=== PATIENT | male | born 1995 | race Caucasian/White ===

== ENCOUNTER 2022-10-30 10:43 | Emergency (ER) | payer MEDICAID, SELFPAY ==
[2022-10-30 11:13] VITALS: BP 169/97; PULSE 95; RESP 20; TEMP 36.6; O2SAT 97
[2022-10-30 11:33] LABS: Basophils Percent Auto 0.4 % (0.2-1.2); Eosinophils Absolute Auto 0.1 K/mm3 (0-0.3); Eosinophils Percent Auto 1.5 % (0-4.4); Hematocrit 50.2 % (42.0-52.0); Hemoglobin 17.4 g/dL (14.0-18.0); Immature Granulocyte Absolute 0.02 K/mm3 (0.00-0.031); Immature Granulocyte Percent A 0.3 % (0-0.5); Lymphocytes Absolute Auto 2.14 K/mm3 (0.9-3.2); Lymphocytes Percent Auto 27.1 % (18.3-44.2); Mean Corpuscular HGB Conc 34.7 g/dl (32-36); Mean Corpuscular Hemoglobin 33.2 pg (26-34); Mean Corpuscular Volume 95.8 fl (80-100); Mean Platelet Volume 10.9 fl (7.4-10.4); Monocytes Absolute Auto 0.5 K/mm3 (0.1-0.6); Monocytes Percent Auto 6.7 % (2.6-8.5); Neutrophils Absolute Auto 5.1 K/mm3 (1.3-6.7); Platelet Count Result 228 k/mm3 (150-375); Red Blood Count 5.24 M/mm3 (4.6-6.20); Red Cell Distribution Width 11.7 % (11.5-14.5); White Blood Count 7.9 K/mm3 (4.5-10.0)
[2022-10-30 11:40] LABS: Appearance Urine Clear (Clear); Bacteria Urine None Seen /hpf; Bilirubin Urine Negative (Negative); Blood Urine 2+ (Negative); Color Urine Dark Yellow (Yellow); Glucose Urine UA Negative (Negative); Ketones Urine Trace mg/dL (Negative); Leukocyte Esterase Ur Negative LEU/UL (Negative); Nitrate Urine Negative (Negative); Non Pathogenic Casts 0-2; Protein Urine 1+ mg/dL (Negative); RBC Urine 0-2 /hpf (0-2); Specific Grav Ur 1.016 (1.001-1.035); Squamous Epithelial Cell Urine Occasional /hpf (Few); pH Urine 7.5 (5.0-9.0)
[2022-10-30 11:45] LABS: Alanine Aminotransferase 187 U/L (6-50); Albumin Level 4.6 g/dL (3.5-5.1); Alkaline Phosphatase 55 U/L (38-126); Anion Gap 11 mmol/L (8-16); Aspartate Amino Transferase 442 U/L (17-59); Bilirubin,Total 1.2 mg/dL (0.2-1.3); Blood Urea Nitrogen 7 mg/dL (9-20); Calcium 8.7 mg/dL (8.4-10.2); Carbon Dioxide 22 mmol/L (22-30); Chloride 104 mmol/L (98-107); Estimated CRCL calculation 196 ml/min; Estimated Glomerular Filt Rate > 60; Glucose 133 mg/dL (65-110); Lipase 249 U/L (23-300); Potassium 4.2 mmol/L (3.4-5.0); Sodium 137 mmol/L (137-145)
[2022-10-30 12:00] LABS: Add Urine Microscopic? YES
--- NOTE | 2022-10-30 13:16 | ED.GIBLEED ---
HPI - GI Bleed General Chief complaint: GI Bleed Stated complaint: stomach pain- blood in stool Time Seen by Provider: 10/30/22 12:48 History of Present Illness HPI Narrative: Patient is a 26-year-old male presenting with abdominal pain. Patient states that he had a low-grade fever a couple of days ago. States that today he woke up and had an episode of loose stool. States that there is a very small amount of blood streaking around the outside. States that he had some abdominal cramping that worsened on his drive to work. States that it reached an 8-9 out of 10 pain mostly on the left. States that that pain has since resolved. Reports some intermittent dysuria. No vomiting, flank pain, cough, shortness of breath, chest pain. Related Data Allergies Allergy/AdvReac Type Severity Reaction Status Date / Time sulfamethoxazole Allergy Hives Verified 10/30/22 12:16 [From ] trimethoprim [From ] Allergy Hives Verified 10/30/22 12:16 Review of Systems Review of Systems: All systems reviewed & are unremarkable except as noted in HPI and below Exam Narrative: GENERAL: Well-appearing, well-nourished, and in no acute distress. HEAD: Normocephalic, atraumatic. EYES: PERRLA and EOMI. ENT: Nares clear, no rhinorrhea or epistaxis. Mucous membranes moist. NECK: Supple. CHEST: . No respiratory distress. HEART: Regular rate and rhythm ABDOMEN: Soft, nontender, nondistended; no flank tenderness EXTREMITIES: Normal range of motion. No edema. SKIN: Warm, dry, no rash. NEURO: No focal deficits. Alert and oriented x3. PSYCH: Normal mood and affect. Course Vital Signs Vital signs: Vital Signs Temperature 97.8 F 10/30/22 11:13 Pulse Rate 95 10/30/22 11:13 Respiratory Rate 20 10/30/22 11:13 Blood Pressure 169/97 H 10/30/22 11:13 Pulse Oximetry 97 10/30/22 11:13 Oxygen Delivery Room Air 10/30/22 11:13 Temperature 97.8 F 10/30/22 11:13 Pulse Rate 88 10/30/22 13:54 Respiratory Rate 17 10/30/22 13:54 Blood Pressure 144/89 H 10/30/22 13:54 Pulse Oximetry 100 10/30/22 13:54 Oxygen Delivery Room Air 10/30/22 11:13 MDM - GI Bleed MDM Narrative Medical decision making narrative: Patient is a 26-year-old male presenting with abdominal pain. Vitals are stable. Exam is unremarkable. Blood work is unremarkable. Blood work with transaminitis. He denies any right upper quadrant pain. He has no tenderness on exam. Do not feel that this requires imaging. UA has small amount of blood. Culture is pending. Will not treat for UTI at this time. Patient is resting comfortably on reevaluation. He denies any recurrence of his pain or other symptoms. He feels comfortable going home which I think is reasonable. Advised that he follow-up with his primary care provider. Appropriate return precautions given. Patient voiced understanding and is agreeable with plan. Discharged in stable condition. Differential Diagnosis Differential diagnosis: Likely other (Abdominal pain, diarrhea, constipation, hematochezia) Medical Records Attestation: I reviewed the patient's medical records. Lab Data Attestation: I reviewed the patient's lab results. 10/30/22 11:23 10/30/22 11:23 Labs: Lab Results 10/30/22 10/30/22 10/30/22 Range/Units 11:23 11:24 13:25 WBC 7.9 (4.5-10.0) K/mm3 RBC 5.24 (4.6-6.20) M/mm3 Hgb 17.4 (14.0-18.0) g/dL Hct 50.2 (42.0-52.0) % MCV 95.8 (80-100) fl MCH 33.2 (26-34) pg MCHC 34.7 (32-36) g/dl RDW 11.7 (11.5-14.5) % Plt Count 228 (150-375) k/mm3 MPV 10.9 H (7.4-10.4) fl Immature Gran % (Auto) 0.3 (0-0.5) % Neut % (Auto) 64.0 (45.5-73.1) % Lymph % (Auto) 27.1 (18.3-44.2) % [place] % (Auto) 6.7 (2.6-8.5) % Eos % (Auto) 1.5 (0-4.4) % Baso % (Auto) 0.4 (0.2-1.2) % Lymph # (Auto) 2.14 (0.9-3.2) K/mm3 [place] # (Auto) 0.5 (0.1-0.6) K/mm3 Eos # (Auto) 0.1
[2022-10-30 13:54] VITALS: BP 144/89; PULSE 88; RESP 17; O2SAT 100
[2022-10-30 14:07] LABS: SARS-CoV-2 RNA PCR Negative (Negative)
== END 2022-10-30 15:10 | disposition home or self-care (01) ==
PROVIDERS: Emergency Medicine; Emergency Provider Emergency Medicine
DX: R10.9 Unspecified abdominal pain (principal); R19.7 Diarrhea, unspecified; Z20.822 Contact with and (suspected) exposure to COVID-19
CPT/HCPCS: 36415; 80053; 81001; 83690; 85025; 87086; 87635; 99283